=== PATIENT | female | born 1970 | race Hispanic/Latino ===

== ENCOUNTER 2016-04-26 22:05 | Emergency (ER) | payer BC ==
[2016-04-27] MEDS ORDERED: TYLENOL ONE (02:16)
[2016-04-27] MEDS ORDERED: TYLENOL PO ONE (02:21)
--- NOTE | 2016-04-27 02:47 | Emergency Department Report ---
HPI - General Chief Complaint: Upper Respiratory Infection Time Seen by Provider: 04/27/16 02:42 - HPI HPI: Patient is a 46-year-old female who presents to ED complaining of throat pain 3 days. Patient describes pain as throbbing in nature, 8 out of 10 intensity, nonradiating, localized to his throat. Admits pain with swallowing and eating. Patient admits no appetite due to throat pain. Patient admits yellow/greenish productive cough and chest congestion. Patient admits fever. Patient denies nausea/vomiting/abdominal pain/shortness of breath/chest pain/ headache. ED Past Medical Hx - Past Medical History Previous Medical History?: No - Surgical History Past Surgical History?: Yes Hx Cholecystectomy: Yes - Social History Smoking Status: Never Smoker Substance Use Type: None - Medications Home Medications: Home Medications Medication Instructions Recorded Confirmed Last Taken Type Acetamin/Codeine 120-12Mg/5 ml 5 ml PO TID #60 ml 04/27/16 Unknown Rx [Tylenol/Codeine 120-12 mg/5 ml] Azithromycin [Zithromax] 250 mg PO DAILY #6 tablet 04/27/16 Unknown Rx Benzonatate [Tessalon Perles] 100 mg PO Q8HR #24 capsule 04/27/16 Unknown Rx Cyclobenzaprine [Flexeril 10 MG 10 mg PO Q4-6H PRN 04/27/16 04/27/16 04/24/16 History TAB] Oxycodone HCl/Acetaminophen 1 tab PO Q4-6H PRN 04/27/16 04/27/16 04/19/16 History [Percocet 7.5/325 mg] ED Review of Systems ROS: Stated complaint: SORE THROAT, CONGESTION Other details as noted in HPI Constitutional: denies: chills, fever Eyes: denies: eye pain, eye discharge, vision change ENT: throat pain, congestion. denies: ear pain, dental pain, hearing loss, epistaxis Respiratory: cough. denies: orthopnea, shortness of breath, SOB with exertion, wheezing Cardiovascular: denies: chest pain, palpitations Endocrine: no symptoms reported Gastrointestinal: denies: abdominal pain, nausea, vomiting, diarrhea, constipation, hematemesis Genitourinary: denies: urgency, dysuria, frequency, hematuria, discharge, abnormal menses, dyspareunia Musculoskeletal: denies: back pain, joint swelling, arthralgia Skin: denies: rash, lesions Neurological: denies: headache, weakness, paresthesias Psychiatric: denies: anxiety, depression Hematological/Lymphatic: denies: easy bleeding, easy bruising Physical Exam - Physical Exam Vital Signs: Vital Signs 04/27/16 04/27/16 04/27/16 00:30 02:08 02:22 Temperature 100.4 F H 99.7 F H Pulse Rate 105 H 104 H Respiratory 18 20 20 Rate Blood Pressure 120/84 120/78 [Left] O2 Sat by Pulse 98 99 Oximetry Physical Exam: GENERAL: Alert and oriented x3, no apparent distress, Normal Gait, atraumatic. HEAD: Head is normocephalic and a-traumatic. EYES: Extra ocular muscles are intact. Pupils are equal, round, and reactive to light and accommodation. EARS: symetrical, atraumatic, non tender,non inflamed. gross auditory nml bilaterally. NOSE: Nose symetrical, Nontender,Nares appeared normal. MOUTH:Mouth is well hydrated and without lesions. Tonsils nonerythematous or swollen, Uvula midline, Tongue not elevated. Mucous membranes are moist. Posterior pharynx clear, no exudate or lesions. Patent airways. NECK: Supple. Non edematous, No carotid bruits. No lymphadenopathy or thyromegaly. LUNGS: Symetrical with respiration, No wheezing, no rales or crackles, CTAB. HEART: S1, S2 present, regular rate and rhythm without murmur, no rubs, no gallops. ABDOMEN: No organomegaly was noted,Positive bowel sounds, soft, and non- distended. . Nontender to palpation on all Quadrants, NO CVA tenderness. EXTREMITIES/MUSCULOSKELETAL: No cyanosis, clubbing, rash, lesions or edema. Full ROM bilaterally. UE/LE Pulses 2+ bilaterally. NEUROLOGIC: No focal Deficit, Cranial nerves II through XII are grossly intact. No loss of sensation, PSYCHIATRIC: Mood is congruent with affect, denies suicidal or homicidal ideations. SKIN: Warm and dry, No lesions, No ulceration or induration present. ED Course Vital Signs 04/27/16 04/27/16 04/27/16 00:30 02:08 02:22 Temperature 100.4 F H 99.7 F H Pulse Rate 105 H 104 H Respiratory 18 20 20 Rate Blood Pressure 120/84 120/78 [Left] O2 Sat by Pulse 98 99 Oximetry ED Medical Decision Making - Medical Decision Making 46-year-old female presents with upper respiratory infection. ED course: Patient received one dose of Tylenol, Robitussin-AC. Rapid strep tests ordered. Rapid strep tests negative Discussed results with patient. Fever responsive to dose of Tylenol Discussed symptomatic relief but [id number] medications. Discussed the follow-up primary care physician. Vital signs stable. NAD Critical care attestation.: If time is entered above; I have spent that time in minutes in the direct care of this critically ill patient, excluding procedure time. ED Disposition Clinical Impression: URI (upper respiratory infection) Qualifiers: URI type: unspecified URI Qualified Code(s): J06.9 - Acute upper respiratory infection, unspecified Pharyngitis Qualifiers: Pharyngitis/tonsillitis etiology: unspecified etiology Qualified Code(s): J02.9 - Acute pharyngitis, unspecified Disposition: DISCHARGED TO HOME OR SELFCARE Is pt being admited?: No Does the pt Need Aspirin: No Condition: Stable Instructions: Pharyngitis (ED), Upper Respiratory Infection (ED), Chronic Bronchitis (ED) Prescriptions: Acetamin/Codeine 120-12Mg/5 ml [Tylenol/Codeine 120-12 mg/5 ml] 5 ml PO TID #60 ml Azithromycin [Zithromax] 250 mg PO DAILY #6 tablet Benzonatate [Tessalon Perles] 100 mg PO Q8HR #24 capsule Referrals: PRIMARY CARE, [Primary Care Provider] - 3-5 Days [facility] [Outside] - 3-5 Days [facility] [Outside] - 3-5 Days Forms: Accompanied Note, Work/School Release Form(ED) Time of Disposition: 03:30
[2016-04-27] MEDS ORDERED: ROBITUSSIN AC PO ONE (02:51)
[2016-04-27 03:45] VITALS: BP 124/79
== END 2016-04-27 03:45 | disposition home or self-care (01) ==
LOC: ED 22:05
DX: J06.9 Acute upper respiratory infection, unspecified (principal); J02.9 Acute pharyngitis, unspecified
CPT/HCPCS: 87116; 87430; 99283